=== PATIENT | male | born 1990 | race Caucasian/White ===

== ENCOUNTER 2016-11-05 22:02 | Emergency (ER) | payer SELFPAY ==
--- NOTE | 2016-11-06 13:08 | ER ---
ADMIT: 11/05/2016 RM/LOC: ER [facility] MR#: [id number] [id number] [place], [place] [address] JOSSELYN SMALL [address] [address] Emergency Room Report SEX: M AGE: 26 : 1990 DATE: 11/05/2016 HISTORY OF PRESENT ILLNESS: The patient is a 26-year-old male with past medical history of depression and bipolar, was brought to ER because of overdose. Allegedly, less than an hour before coming to the ER by Law Enforcement and Paramedics, the patient texts his mom and said he wants to end his life. The mother and Law Enforcement got to the door, they saw the patient in the bathtub, but he was awake and alert and oriented. The patient states he took 40 to 45 pills of lithium 300 mg and also took about 10 pills of trazodone less than an hour before coming to the ER. The patient is chronically on trazodone and lithium. The patient denied co-ingestion of any other meds, but stated he used some alcohol. The patient denies using rubbing alcohol or wood alcohol or antifreeze and states he just used drinking alcohol. The patient denies any trauma or fall and states he has suicidal ideation. PHYSICAL EXAMINATION: VITAL SIGNS: In the ER, the patient was tachycardic with a heart rate of 135, blood pressure was stable, the patient was afebrile, respiratory rate was normal at 22. GENERAL: The patient was alert and oriented to person, place, time, and situation answering all the questions and cooperative. KUB did not show any pill fragment. The patient was immediately had gastric lavage with 3-1/2 liters of tap water, which did not show any pill fragments. The patient vomited 3 times in the ER, which the vomitus contents also did not show any pill fragments. The patient received IV fluids, Tylenol level was negative, aspirin level was negative, alcohol level was 224. EKG was sinus tachycardia with normal intervals of QRS and corrected QT. The patient's lithium level was 4.48. Dr. Cisneros, city call was contacted and after discussing the case together, we believed that the patient could benefit from dialysis, without having claims consultant on board at this time in the hospital. The claims consultant at [facility] was contacted, [facility], and ADMIT: 11/05/2016 RM/LOC: ER [facility] MR#: [id number] [address] [address] JOSSELYN SMALL [address] [place] [address] Emergency Room Report SEX: M AGE: 26 : 1990 he advised the patient be admitted to [facility] for possible dialysis. The [facility] ER, Dr. Kasper was contacted and he diverted me to Dr. Gross, and the patient was admitted by Dr. Gross for further followups and treatments. Meanwhile, Poison Control was contacted and the patient was ordered whole bowel irrigation. Considering the patient's mental status at this moment, I do not see any necessity for intubation of the patient. The patient is sitting on the bed, sometimes walking, talking to the family, sometimes smiling and could protect airways at the moment and has no altered mental status. The distance between [facility] is just about 50 minutes, and the patient is going by ambulance. The patient was transferred to the [facility] for further followups and treatments of lithium overdose, suicide attempt. Moreno Barrera MD/ damaso JOB #: [id number] CC: Magen Garcia MD, Attending Physician Volodymyr Cisneros MD, Family Physician
== END 2016-11-06 01:18 | disposition short-term general hospital (02) ==
LOC: ER 22:02
DX: T56.892A Toxic effect of other metals, intentional self-harm, initial encounter (principal); F17.210 Nicotine dependence, cigarettes, uncomplicated; Z79.899 Other long term (current) drug therapy

== ENCOUNTER 2016-12-24 01:48 | Emergency (ER) | payer SELFPAY ==
--- NOTE | 2016-12-24 06:54 | ER ---
ADMIT: 12/24/2016 RM/LOC: ER [facility] MR#: [id number] [address] [facility] [address] JOSSELYN SMALL [address] [facility] [address] [place] [address] Emergency Room Report SEX: M AGE: 26 : 1990 DATE: 12/24/2016 Patient is a 26-year-old male, transported by [facility] after texting friends that he wanted to , had 10 shots of vodka. Exam remarkable for nontoxic, afebrile male, who admits that he drank 10 shots of vodka, but has no serious intent to commit suicide. He has been compliant with medications, off lithium since overdose two months ago. Police interviewed and concurred that no suicidal threat. The patient released in mother's custody after [facility] lab and EKG all within normal limits except alcohol 337. Magen Garcia MD/ damaso JOB #: [id number] CC: Magen Garcia MD, Attending Physician Desire Forde MD, Family Physician Frances Howard MD [facility]
--- NOTE | 2016-12-28 10:00 | NUR ---
Received SAD person referral. Attempted to contact pt. Pt does not have a working phone number listed at this time.
--- NOTE | 2016-12-29 15:32 | NUR ---
Attempted to contact pt re: SAD person referral. Attempted to contact pt via phone call. No answer, voice mail is not set up.
--- NOTE | 2016-12-29 15:45 | NUR ---
Received call back from pt. States he was at [facility]. States he got his medications filled. Deny any needs at this time.
== END 2016-12-24 03:00 | disposition home or self-care (01) ==
LOC: ER 01:48
DX: F10.129 Alcohol abuse with intoxication, unspecified (principal); F31.9 Bipolar disorder, unspecified; F17.210 Nicotine dependence, cigarettes, uncomplicated; Z79.899 Other long term (current) drug therapy